=== PATIENT | female | born 1960 | race African-American/Black ===

== ENCOUNTER → 2017-04-02 | Day surgery (SDC) | payer OTHER ==
[~2017-04-02] VITALS: Ht 170.2 cm; Wt 138.0 kg
[~2017-04-02] MED LIST: CHLORHEXIDINE GLUCONATE 2 % 1 PACK (2 CLOTHS) TOPICAL PRN; INSULIN HUMAN REGULAR 1,000 UNITS/10 ML VIAL SQ PRN; LACTATED RINGER'S 1000 ML IV PRN; METOPROLOL TARTRATE 25 MG TAB PO PRN; POVIDONE IODINE 5% (ANTISEPSIS KIT) 4 APPLICATIONS EACH NARE PRN; PROPOFOL 200 MG/20 ML AMP IV ONE; SODIUM CHLORID 0.9% 500 ML IV PRN; Z.0.UNKNOWN
--- NOTE | 2017-04-02 15:02 | GIPROC ---
[facility] [address] [facility]. [facility], [address] COLONOSCOPY PROCEDURE REPORT EXAM DATE: 04/02/2017 PATIENT NAME: Tami Hays MR #: [id number] BIRTHDATE: 1960 ENDOSCOPIST: Alexandr Smith MD ORDER #: [id number] [employer] TENDER: Eliud Torrez RN STATUS: outpatient INDICATIONS: The patient is a 56 yr old female here for a colonoscopy due to average risk patient for colon cancer PROCEDURE PERFORMED: Colonoscopy, screening MEDICATIONS: None and Per Anesthesia. PREP QUALITY: fair ESTIMATED BLOOD LOSS: None CONSENT: The patient understands the risks and benefits of the procedure and understands that these risks include, but are not limited to: sedation, allergic reaction, infection, perforation and/or bleeding. Alternative means of evaluation and treatment include, among others: physical exam, x-rays, and/or surgical intervention. The patient elects to proceed with this endoscopic procedure. medical equipment was checked for proper function. Hand hygiene and appropriate measures for infection prevention was taken. After the risks, benefits and alternatives of the procedure were thoroughly explained, Informed consent was verified, confirmed and timeout was successfully executed by the treatment team. A digital exam revealed no abnormalities of the rectum The endoscope was introduced through the anus and advanced to the cecum, which was identified by both the appendix and ileocecal valve. The instrument was then slowly withdrawn as the colon was fully examined. COLON FINDINGS: Mild diverticulosis was noted in the descending colon and sigmoid colon. Medium sized lipoma was found in the transverse colon. Multiple biopsies were performed. The colon mucosa was otherwise normal. Retroflexed views revealed no abnormalities The scope was then completely withdrawn from the patient and the procedure terminated. PROCEDURE WITHDRAWAL TIME:8.1minutes ADVERSE EVENTS: There were no complications. IMPRESSIONS: 1. Mild diverticulosis was noted in the descending colon and sigmoid colon 2. Medium sized lipoma in the transverse colon; multiple biopsies were performed 3. The colon mucosa was otherwise normal 4. Retroflexed views revealed no abnormalities 5. Revealed no abnormalities of the rectum RECOMMENDATIONS: 1. Await biopsy results. Biopsy results will not be ready for 7-10 days. If you don't hear from us in two weeks, call our office for results. 2. Yearly hemoccult 3. High fiber diet 4. Follow-up: GI Clinic PRN RECALL: Return 5 years Colonoscopy Alexandr Smith MD eSigned: Alexandr Smith MD 04/02/2017 3:02 PM cc: PATIENT NAME: Tami Hays MR#: [id number]
[2017-04-02 15:55] VITALS: BP 116/71; PULSE 71; RESP 16; TEMP 98.2; O2SAT 96
== END | disposition home or self-care (01) ==
LOC: HSDC 09:32
PROVIDERS: ATTEND Internal Medicine Gastroenterology
DX: Z12.11 Encounter for screening for malignant neoplasm of colon (principal); D17.5 Benign lipomatous neoplasm of intra-abdominal organs; K57.30 Diverticulosis of large intestine without perforation or abscess without bleeding; K64.9 Unspecified hemorrhoids; J45.902 Unspecified asthma with status asthmaticus; I51.7 Cardiomegaly; E11.9 Type 2 diabetes mellitus without complications; I10 Essential (primary) hypertension; R60.0 Localized edema; J44.1 Chronic obstructive pulmonary disease with (acute) exacerbation; E78.5 Hyperlipidemia, unspecified; M51.36 Other intervertebral disc degeneration, lumbar region; M79.89 Other specified soft tissue disorders; R31.29 Other microscopic hematuria; R35.1 Nocturia; E55.9 Vitamin D deficiency, unspecified; R55 Syncope and collapse; Z72.0 Tobacco use
CPT/HCPCS: 88305